=== PATIENT | female | born 2000 | race Two or more races ===

== ENCOUNTER 2020-04-23 00:33 | Emergency (ER) | payer OTHER ==
[~2020-04-23] VITALS: Ht 154.9 cm; Wt 44.0 kg
[2020-04-23] MEDS ORDERED: PRENATABS FA T1 EACH (00:41)
== END 2020-04-23 19:04 | disposition home or self-care (01) ==
LOC: ER 00:33
DX: O23.42 Unspecified infection of urinary tract in pregnancy, second trimester (principal); O99.612 Diseases of the digestive system complicating pregnancy, second trimester; K80.20 Calculus of gallbladder without cholecystitis without obstruction; Z34.02 Encounter for supervision of normal first pregnancy, second trimester

== ENCOUNTER → 2020-07-09 | Outpatient (CLI) | payer OTHER ==
[~2020-07-09] MED LIST: PRENATABS FA T1 EACH
== END | disposition home or self-care (01) ==
LOC: OBS/DEL 18:03
PROVIDERS: ATTEND Obstetrics & Gynecology
DX: S30.0XXA Contusion of lower back and pelvis, initial encounter (principal); O30.003 Twin pregnancy, unspecified number of placenta and unspecified number of amniotic sacs, third trimester; Z04.3 Encounter for examination and observation following other accident; Z3A.28 28 weeks gestation of pregnancy; W18.09XA Striking against other object with subsequent fall, initial encounter; Y93.89 Activity, other specified; Y92.69 Other specified industrial and construction area as the place of occurrence of the external cause; Y99.8 Other external cause status

== ENCOUNTER 2020-07-23 00:45 | Outpatient (CLI) | payer OTHER | END 2020-07-24 07:08 | disposition home or self-care (01) | LOC: OBS/DEL 00:45 | PROVIDERS: ATTEND Obstetrics & Gynecology | DX: O23.43 Unspecified infection of urinary tract in pregnancy, third trimester (principal); O30.003 Twin pregnancy, unspecified number of placenta and unspecified number of amniotic sacs, third trimester; Z3A.30 30 weeks gestation of pregnancy; Z20.822 Contact with and (suspected) exposure to COVID-19 ==

== ENCOUNTER 2024-06-05 11:08 | Outpatient (CLI) | payer OTHER | END 2024-06-05 11:09 | disposition home or self-care (01) | LOC: PRENATAL 11:08 | PROVIDERS: ATTEND Obstetrics & Gynecology Maternal & Fetal Medicine | DX: O36.80X0 Pregnancy with inconclusive fetal viability, not applicable or unspecified (principal); Z36.82 Encounter for antenatal screening for nuchal translucency; O34.219 Maternal care for unspecified type scar from previous cesarean delivery; O60.00 Preterm labor without delivery, unspecified trimester; O44.00 Complete placenta previa NOS or without hemorrhage, unspecified trimester; Z3A.13 13 weeks gestation of pregnancy ==

== ENCOUNTER → 2024-07-27 | Emergency (ER) | payer OTHER ==
[~2024-07-27] MED LIST changes: +CEPHALEXIN500 MG PO; +METRONIDAZOLE500 MG PO; +VITABEX IRON C1 EACH PO
== END | disposition still patient (30) ==
LOC: ER 22:39
DX: O26.893 Other specified pregnancy related conditions, third trimester (principal)

== ENCOUNTER 2024-07-28 00:32 | Outpatient (CLI) | payer OTHER ==
[2024-07-27 23:28] VITALS: BP 109/66
[~2024-07-28] VITALS: Ht 154.9 cm; Wt 45.4 kg
[~2024-07-28 00:32] MED LIST changes: -CEPHALEXIN500 MG PO; -METRONIDAZOLE500 MG PO; -VITABEX IRON C1 EACH PO
[2024-07-28] MEDS ORDERED: MORPHINE SULFATE 4 MG/ML VIAL IV ONE ×2 (00:45→01:15)
[2024-07-28] MEDS ORDERED: RINGERS SOLUTION,LACTATED 1,000 ML IV SCH (00:45)
[2024-07-28 01:16] VITALS: BP 92/51
[2024-07-28 01:19] LABS: PH,URINE 6.5 (5.0-8.0); URINE APPEARANCE Clear; URINE BILIRRUBIN Negative (NEGATIVE); URINE BLOOD Trace; URINE COLOR Yellow; URINE GLUCOSE Negative (NEGATIVE); URINE KETONE Negative (NEGATIVE); URINE LEUKOCYTE Small; URINE NITRATE Negative; URINE PROTEIN Negative (NEGATIVE); URINE UROBILINOGEN 0.2 E.U./dl
[2024-07-28 01:22] LABS: URINE BACTERIA 1762.4 uL (0.0-1933); URINE EPITHELIAL CELLS 25.3 uL (0.0-38.8); URINE RBC 6.3 uL (0.0-20.8); URINE WBC 104.3 uL (0.0-23.2)
[2024-07-28 01:24] LABS: HEMATOCRIT 30.3 % (34.1-44.9); HEMOGLOBIN 10.4 g/dL (11.2-15.7); RED BLOOD COUNT 3.75 M/uL (3.93-5.22)
[2024-07-28 01:25] LABS: BASO % 0.3 % (0.1-1.2); EOS # 0.37 (0.04-0.54); EOS % 2.5 % (0.7-7.0); LYMPH # 2.74 (1.18-3.74); LYMPH % 18.9 % (19.3-53.1); MEAN CORPUSCULAR HEMOGLOBIN 27.7 pg (25.6-32.2); MONO # 0.82 (0.24-0.82); MONO % 5.6 % (4.7-12.5); NEUT # 10.46 (1.56-6.13); NEUT % 72.1 % (34.0-71.1); PLATELET COUNT 277 K/uL (163-369); RED CELL DISTRIBUTION WIDTH 13.2 % (11.6-14.4)
[2024-07-28 01:28] LABS: URINE CAST 0.14 uL (0.0-1.40)
[2024-07-28 04:00] VITALS: BP 96/57
[2024-07-28] MEDS ORDERED: CEFAZOLIN SODIUM 1,000 MG VIAL IV ONE (06:15)
[2024-07-28 06:25] VITALS: BP 90/60; O2SAT 97
[2024-07-28 11:12] VITALS: BP 94/57
[2024-07-28 13:01] VITALS: BP 94/57
== END 2024-07-28 13:21 | disposition home or self-care (01) ==
LOC: OBS/DEL 00:32
PROVIDERS: Student in an Organized Health Care Education/Training Program; ATTEND Obstetrics & Gynecology
DX: O23.42 Unspecified infection of urinary tract in pregnancy, second trimester (principal); N39.0 Urinary tract infection, site not specified; M54.50 Low back pain, unspecified; R10.2 Pelvic and perineal pain; Z3A.20 20 weeks gestation of pregnancy

== ENCOUNTER 2024-08-20 17:55 | Inpatient (IN) | payer OTHER ==
[~2024-08-20] VITALS: Ht 154.9 cm; Wt 47.2 kg
[2024-08-20 18:54] VITALS: BP 128/76
[2024-08-20] MEDS ORDERED: CEFTRIAXONE SODIUM 1,000 MG VIAL IV SCH (20:47)
[2024-08-20 20:48] LABS: BASO % 0.4 % (0.1-1.2); EOS # 0.22 (0.04-0.54); HEMATOCRIT 28.5 % (34.1-44.9); LYMPH # 2.22 (1.18-3.74); LYMPH % 20.1 % (19.3-53.1); MEAN CORPUSCULAR HEMOGLOBIN 28.6 pg (25.6-32.2); MONO # 1.03 (0.24-0.82); MONO % 9.3 % (4.7-12.5); NEUT # 7.48 (1.56-6.13); NEUT % 67.5 % (34.0-71.1); PLATELET COUNT 239 K/uL (163-369); RED BLOOD COUNT 3.46 M/uL (3.93-5.22); RED CELL DISTRIBUTION WIDTH 13.4 % (11.6-14.4)
[2024-08-20 20:51] LABS: HEMOGLOBIN 9.9 g/dL (11.2-15.7)
[2024-08-20 21:12] LABS: ALBUMIN 2.7 gm/dL (3.4-5.0); BILIRUBIN TOTAL 0.22 mg/dL (0.3-1.2); CALCIUM 8.5 mg/dL (8.5-10.1); CREATININE SERUM 0.44 mg/dL (0.55-1.02); GFR 174.23; GLOBULINA 3.4 G/DL (2.4-3.5); POTASSIUM 3.64 mEq/L (3.5-5.1); TOTAL PROTEIN 6.1 gm/dL (6.4-8.2)
[2024-08-21 00:27] LABS: URINE BACTERIA 1300.7 uL (0.0-1933); URINE RBC 12.8 uL (0.0-20.8); URINE WBC 44.3 uL (0.0-23.2)
[2024-08-21 00:30] LABS: URINE APPEARANCE Clear; URINE BILIRRUBIN Negative (NEGATIVE); URINE BLOOD Small; URINE COLOR Yellow; URINE GLUCOSE Negative (NEGATIVE); URINE KETONE Negative (NEGATIVE); URINE LEUKOCYTE Moderate; URINE NITRATE Negative; URINE PROTEIN Negative (NEGATIVE)
[2024-08-21 01:00] VITALS: BP 87/52
[2024-08-21 01:02] LABS: URINE EPITHELIAL CELLS > 201.7 uL (0.0-38.8)
[2024-08-21 08:47] VITALS: BP 90/60
[2024-08-21] MEDS ORDERED: PNV,CALCIUM 72/IRON/FOLIC ACID 1 TAB TABLET PO SCH (09:00)
[2024-08-21 09:03] VITALS: BP 128/76
[2024-08-21 14:17] VITALS: BP 90/50
[2024-08-21 16:41] VITALS: BP 96/58
[2024-08-21] MEDS ORDERED: IRON FUM,PS/FOLIC/BCOMP,C NO.9 1 CAP CAPSULE PO NR (16:45)
[2024-08-21] MEDS ORDERED: CEFTRIAXONE SODIUM 1,000 MG VIAL IV SCH (21:00)
[2024-08-22 00:06] VITALS: BP 98/61
[2024-08-22] MEDS ORDERED: IRON FUM,PS/FOLIC/BCOMP,C NO.9 1 CAP CAPSULE PO SCH (09:00)
[2024-08-22 09:06] VITALS: BP 99/62
[2024-08-22 11:49] LABS: BASO % 0.4 % (0.1-1.2); EOS # 0.25 (0.04-0.54); EOS % 3.2 % (0.7-7.0); HEMATOCRIT 28.3 % (34.1-44.9); HEMOGLOBIN 9.7 g/dL (11.2-15.7); LYMPH # 1.71 (1.18-3.74); LYMPH % 21.8 % (19.3-53.1); MEAN CORPUSCULAR HEMOGLOBIN 28.7 pg (25.6-32.2); MONO # 0.63 (0.24-0.82); NEUT # 5.16 (1.56-6.13); NEUT % 65.8 % (34.0-71.1); PLATELET COUNT 229 K/uL (163-369); RED BLOOD COUNT 3.38 M/uL (3.93-5.22); RED CELL DISTRIBUTION WIDTH 13.2 % (11.6-14.4)
[2024-08-22 16:00] VITALS: BP 91/56
[2024-08-22 23:40] VITALS: BP 94/60
[2024-08-23 04:34] VITALS: BP 104/66
[2024-08-23 05:20] LABS: BASO % 0.3 % (0.1-1.2); EOS # 0.33 (0.04-0.54); EOS % 3.8 % (0.7-7.0); HEMOGLOBIN 9.5 g/dL (11.2-15.7); LYMPH # 2.71 (1.18-3.74); LYMPH % 31.5 % (19.3-53.1); MEAN CORPUSCULAR HEMOGLOBIN 27.9 pg (25.6-32.2); MONO % 8.1 % (4.7-12.5); NEUT # 4.73 (1.56-6.13); NEUT % 55.3 % (34.0-71.1); PLATELET COUNT 239 K/uL (163-369); RED BLOOD COUNT 3.41 M/uL (3.93-5.22); RED CELL DISTRIBUTION WIDTH 13.2 % (11.6-14.4)
[2024-08-23 08:00] VITALS: BP 92/58
[2024-08-23] MEDS ORDERED: VITABEX IRON C1 EACH PO (12:25)
[2024-08-23] MEDS ORDERED: METRONIDAZOLE500 MG PO (12:25)
[2024-08-23] MEDS ORDERED: CEPHALEXIN500 MG PO ×2 (12:26→12:28)
== END 2024-08-23 14:49 | disposition home or self-care (01) | DRG 832 ==
LOC: OB/GYN
PROVIDERS: ADMIT Obstetrics & Gynecology; ATTEND Obstetrics & Gynecology
PROC: 4A1HXCZ Monitoring of Products of Conception, Cardiac Rate, External Approach (ICD-10-PCS; principal; 2024-08-20)
PROC: BY4CZZZ Ultrasonography of Second Trimester, Single Fetus (ICD-10-PCS; 2024-08-21)
PROC: BU4CZZZ Ultrasonography of Uterus and Ovaries (ICD-10-PCS; 2024-08-21)
DX: O23.02 Infections of kidney in pregnancy, second trimester (principal); N12 Tubulo-interstitial nephritis, not specified as acute or chronic; O26.872 Cervical shortening, second trimester; O44.02 Complete placenta previa NOS or without hemorrhage, second trimester; O98.912 Unspecified maternal infectious and parasitic disease complicating pregnancy, second trimester; O34.219 Maternal care for unspecified type scar from previous cesarean delivery; O35.3XX0 Maternal care for (suspected) damage to fetus from viral disease in mother, not applicable or unspecified; Z14.8 Genetic carrier of other disease; Z3A.23 23 weeks gestation of pregnancy

== ENCOUNTER 2024-11-18 12:45 | Outpatient (CLI) | payer OTHER ==
[~2024-11-18 12:45] MED LIST changes: +CEPHALEXIN500 MG PO; +METRONIDAZOLE500 MG PO; +VITABEX IRON C1 EACH PO
== END 2024-11-18 12:46 | disposition home or self-care (01) ==
LOC: PRENATAL 12:45
PROVIDERS: ATTEND Obstetrics & Gynecology Maternal & Fetal Medicine
DX: O26.849 Uterine size-date discrepancy, unspecified trimester (principal); O36.8130 Decreased fetal movements, third trimester, not applicable or unspecified; Z3A.35 35 weeks gestation of pregnancy

== ENCOUNTER 2024-11-26 10:11 | Inpatient (IN) | payer OTHER ==
[~2024-11-26] VITALS: Ht 154.9 cm; Wt 54.4 kg
[2024-11-26 11:15] LABS: BASO % 0.4 % (0.1-1.2); EOS # 0.18 (0.04-0.54); EOS % 1.8 % (0.7-7.0); LYMPH # 2.28 (1.18-3.74); LYMPH % 23.2 % (19.3-53.1); MEAN PLATELET VOLUME 11.00 fl (9.4-12.4); MONO # 0.68 (0.24-0.82); MONO % 6.9 % (4.7-12.5); NEUT # 6.52 (1.56-6.13); NEUT % 66.6 % (34.0-71.1); RED CELL DISTRIBUTION WIDTH 13.9 % (11.6-14.4)
[2024-11-26 11:30] LABS: URINE APPEARANCE Clear; URINE BILIRRUBIN Negative (NEGATIVE); URINE BLOOD Large; URINE COLOR Yellow; URINE GLUCOSE Negative (NEGATIVE); URINE KETONE Negative (NEGATIVE); URINE LEUKOCYTE Large; URINE NITRATE Negative; URINE PROTEIN Negative (NEGATIVE); URINE UROBILINOGEN 0.2 E.U./dl
[2024-11-26 11:35] LABS: URINE BACTERIA 3417.6 uL (0.0-1933); URINE EPITHELIAL CELLS 81.9 uL (0.0-38.8); URINE WBC 185.5 uL (0.0-23.2)
[2024-11-26 11:47] LABS: INR < 0.93
[2024-11-26 12:21] LABS: URINE CAST 0.29 uL (0.0-1.40); URINE RBC 1.4 uL (0.0-20.8)
[2024-11-26 12:22] LABS: TYPE CELLS SQUAMOUS; URINE YEAST FEW /hpf
[2024-11-26 12:55] LABS: ALT/SGPT 13.0 U/L (12-78); AST/SGOT 14.0 U/L (15-37); BILIRUBIN TOTAL 0.29 mg/dL (0.3-1.2); BUN CREA RATIO 14.0 (7.0-25.0); CREATININE SERUM 0.51 mg/dL (0.55-1.02); GFR 145.77; GLOBULINA 3.6 G/DL (2.4-3.5); GLUCOSE FASTING 65.0 mg/dL (65-100); OSMOLALITY SERUM 277.0 MOSM/KG (275-295)
[2024-11-26 14:22] LABS: RH POSITIVE
[2024-11-26 16:01] VITALS: BP 110/52
[2024-11-26] MEDS ORDERED: CEFAZOLIN SODIUM 1,000 MG VIAL ONE (17:08)
[2024-11-26] MEDS ORDERED: CEPHALEXIN500 M1 PO (17:26)
[2024-11-26] MEDS ORDERED: RINGERS SOLUTION,LACTATED 1,000 ML IV SCH (17:30)
[2024-11-26] MEDS ORDERED: CEFAZOLIN SODIUM 1,000 MG VIAL IV SCH (17:30)
[2024-11-26] MEDS ORDERED: CITRIC ACID/SODIUM CITRATE 30 ML BLIST.PACK PO SCH (17:30)
[2024-11-26] MEDS ORDERED: OXYTOCIN 10 UNITS/ML VIAL ONE ×2 (17:40→22:09)
[2024-11-26] MEDS ORDERED: ERYTHROMYCIN BASE OPHT 1GM EACH TUBE OP ONE (17:40)
[2024-11-26] MEDS ORDERED: MORPHINE SULFATE 4 MG in 0.9 % SODIUM CHLORIDE 9 ML IV PRN (18:30)
[2024-11-26] MEDS ORDERED: ONDANSETRON HCL 2 MG/ML VIAL IV PRN (18:30)
[2024-11-26] MEDS ORDERED: MORPHINE SULFATE 4 MG/ML CARTRIDGE IV PRN (20:15)
[2024-11-26] MEDS ORDERED: MORPHINE SULFATE 4 MG/ML VIAL IV ONE ×2 (20:40→21:45)
[2024-11-26] MEDS ORDERED: SIMETHICONE 125 MG CAPSULE PO SCH (21:00)
[2024-11-26] MEDS ORDERED: OXYTOCIN 1,000 ML IV SCH (22:15)
[2024-11-26 22:34] VITALS: BP 130/82
[2024-11-27] VITALS: BP 102/64
[2024-11-27] MEDS ORDERED: ACETAMINOPHEN 325 MG TABLET PO SCH
[2024-11-27] MEDS ORDERED: KETOROLAC TROMETHAMINE 30 MG VIAL IV SCH
[2024-11-27 06:17] LABS: BASO % 0.2 % (0.1-1.2); EOS # 0.10 (0.04-0.54); EOS % 0.7 % (0.7-7.0); LYMPH # 1.73 (1.18-3.74); LYMPH % 12.6 % (19.3-53.1); MEAN PLATELET VOLUME 11.00 fl (9.4-12.4); MONO # 0.89 (0.24-0.82); MONO % 6.5 % (4.7-12.5); NEUT # 10.91 (1.56-6.13); NEUT % 79.3 % (34.0-71.1); RED CELL DISTRIBUTION WIDTH 13.7 % (11.6-14.4)
[2024-11-27 08:37] VITALS: BP 115/68
[2024-11-27] MEDS ORDERED: DOCUSATE SODIUM 100MG CAP PO SCH (09:00)
[2024-11-27 16:39] VITALS: BP 103/66
[2024-11-27 20:29] VITALS: BP 114/77
[2024-11-28] VITALS: BP 90/60
[2024-11-28 08:58] VITALS: BP 101/66
[2024-11-28] MEDS ORDERED: IBUPROFEN800 MG PO (10:45)
[2024-11-28] MEDS ORDERED: COLACE100 MG PO (10:45)
== END 2024-11-28 13:04 | disposition home or self-care (01) | DRG 785 ==
LOC: LDR 16:57 → OB/GYN 16:57
PROVIDERS: ADMIT Obstetrics & Gynecology; ATTEND Obstetrics & Gynecology
PROC: 0UB70ZZ Excision of Bilateral Fallopian Tubes, Open Approach (ICD-10-PCS; 2024-11-26)
PROC: 0DNW0ZZ Release Peritoneum, Open Approach (ICD-10-PCS; 2024-11-26)
PROC: 4A1HXCZ Monitoring of Products of Conception, Cardiac Rate, External Approach (ICD-10-PCS; 2024-11-26)
PROC: 10D00Z1 Extraction of Products of Conception, Low, Open Approach (ICD-10-PCS; principal; 2024-11-26 17:30)
DX: O34.211 Maternal care for low transverse scar from previous cesarean delivery (principal); Z3A.37 37 weeks gestation of pregnancy; Z30.2 Encounter for sterilization; Z37.0 Single live birth; O99.892 Other specified diseases and conditions complicating childbirth; N73.6 Female pelvic peritoneal adhesions (postinfective)